=== PATIENT | female | born 2000 | race African-American/Black ===

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

== ENCOUNTER 2018-07-10 11:42 | Emergency (ER) | payer MEDICAID ==
[~2018-07-10] VITALS: Ht 162.6 cm; Wt 73.0 kg
[2018-07-10 16:18] VITALS: BP 112/60
== END 2018-07-10 16:20 | disposition home or self-care (01) ==
LOC: ER 11:47
DX: S10.96XA Insect bite of unspecified part of neck, initial encounter (principal); S30.861A Insect bite (nonvenomous) of abdominal wall, initial encounter; S40.862A Insect bite (nonvenomous) of left upper arm, initial encounter; S40.861A Insect bite (nonvenomous) of right upper arm, initial encounter; W57.XXXA Bitten or stung by nonvenomous insect and other nonvenomous arthropods, initial encounter; Y93.89 Activity, other specified; Y92.59 Other trade areas as the place of occurrence of the external cause
CPT/HCPCS: 99283

== ENCOUNTER 2018-11-28 16:36 | Emergency (ER) | payer MEDICAID ==
[~2018-11-28] VITALS: Ht 165.1 cm; Wt 82.0 kg
[2018-11-28] MEDS: ONDANSETRON 4MG ODT PO ONE (22:30)
[2018-11-28] MEDS: ACETAMINOPHEN 325MG TABLET PO ONE (22:30)
[2018-11-28] MEDS: MAGNESIUM/ALUMINUM HYDROXIDE/SIMETHICONE 30ML UDC PO ONE (22:30)
[2018-11-28] MEDS: FAMOTIDINE 20MG TABLET PO ONE (22:30)
[2018-11-29 00:05] VITALS: BP 115/63
== END 2018-11-29 00:11 | disposition home or self-care (01) ==
LOC: ER 16:36
DX: O26.891 Other specified pregnancy related conditions, first trimester (principal); R11.0 Nausea; R10.13 Epigastric pain; Z3A.01 Less than 8 weeks gestation of pregnancy
CPT/HCPCS: 81025; 93005; 99284; Q0162

== ENCOUNTER 2020-01-11 19:19 | Emergency (ER) | payer MEDICAID ==
[~2020-01-11] VITALS: Ht 162.6 cm; Wt 88.7 kg
[2020-01-11 20:04] VITALS: BP 137/65
[2020-01-11 22:10] LABS: HCG SCREEN POSITIVE
== END 2020-01-11 23:08 | disposition left against medical advice (07) ==
LOC: ER 19:19
DX: R68.89 Other general symptoms and signs (principal); D64.9 Anemia, unspecified
CPT/HCPCS: 84703; 99283

== ENCOUNTER 2020-01-15 11:59 | Emergency (ER) | payer MEDICAID ==
[~2020-01-15] VITALS: Ht 162.6 cm; Wt 88.0 kg
[2020-01-15 13:16] LABS: BASOPHILS % 0.7 % (0.0-2.0); CLARITY URINE CLEAR (CLEAR); COLOR URINE YELLOW (YELLOW); EOSINOPHILS % 0.8 % (0.0-5.0); HEMATOCRIT. 34.9 % (36.0-48.0); KETONES URINE NEGATIVE (NEGATIVE); LEUKOCYTE ESTERASE URINE 1+ (NEGATIVE); LYMPHOCYTES % 27.5 % (20.0-50.0); MEAN CORPUSCULAR HEMOGLOBIN 30.7 pg (28.0-32.0); MEAN CORPUSCULAR VOLUME 89.4 fL (81.0-99.0); MEAN PLATELET VOLUME 9.9 fl (7.4-10.4); MONOCYTES % 9.8 % (2.0-8.0); NEUTROPHILS % 61.2 % (40.0-76.0); NITRITE URINE NEGATIVE (NEGATIVE); OCCULT BLOOD URINE NEGATIVE (NEGATIVE); PH URINE >=9.0 (4.5-8.0); PLATELET 233 x1000/uL (130-400); PROTEIN URINE TRACE (NEGATIVE); RED CELL DISTRIBUTION WIDTH 14.2 % (11.6-14.6); SPECIFIC GRAVITY URINE 1.029 (1.005-1.030)
[2020-01-15 13:29] LABS: CHLORIDE 107 mEq/L (98-107)
[2020-01-15 13:51] LABS: B-HCG QUANTITATIVE 22941 mIU/mL (<3)
[2020-01-15 15:59] VITALS: BP 104/76
[2020-01-15] MEDS ORDERED: ONDANSETRON 4MG ODT PO ONE (16:15)
== END 2020-01-15 16:14 | disposition home or self-care (01) ==
LOC: ER 11:59
DX: O20.8 Other hemorrhage in early pregnancy (principal); O23.41 Unspecified infection of urinary tract in pregnancy, first trimester; I49.9 Cardiac arrhythmia, unspecified; Z3A.01 Less than 8 weeks gestation of pregnancy
CPT/HCPCS: 36415; 76801; 76817; 80053; 81003; 83690; 84702; 85025; 86900; 86901; 87077; 87086; 93005; 99285; Q0162